=== PATIENT | male | born 1980 | race Caucasian/White ===

== ENCOUNTER 2020-04-10 22:42 | Emergency (ER) | payer BC ==
[2020-04-10] MEDS ORDERED: Octyl 2-Cyanoacrylate 1 Tube ONE (23:57)
[2020-04-11] MEDS ORDERED: Diphtheria,Pertussis(Acell),Tetanus Vaccine 0.5 ML Syringe IM ONE ×2 (00:16→00:40)
[2020-04-11] MEDS ORDERED: Octyl 2-Cyanoacrylate 1 Tube TOP ONE (00:16)
[2020-04-11] MEDS ORDERED: Cephalexin 500 MG Cap PO ONE (00:16)
[2020-04-11] MEDS ORDERED: Octyl 2-Cyanoacrylate 1 APPLIC TUBE ONE (00:19)
--- NOTE | 2020-04-11 00:22 | EDM.PDOC ---
ED HPI GENERAL MEDICAL PROBLEM - General Chief Complaint: Laceration Stated Complaint: LEFT HAND FINGER INJURY Time Seen by Provider: 04/10/20 23:10 - History of Present Illness INITIAL COMMENTS - FREE TEXT/NARRATIVE: HISTORY AND PHYSICAL: History of present illness: This is a 39-year-old gentleman who presents ER today with an avulsion laceration of his left thumb that he incurred while cutting up a deer. Patient reports his tetanus status is not up-to-date in greater than 10 years. Patient reports that he has been having difficult time stopping the bleeding. Patient denies any other symptomatology. Review of systems: As per history of present illness and below otherwise all systems reviewed and negative. Past medical history: As per history of present illness and as reviewed below otherwise noncontributory. Surgical history: As per history of present illness and as reviewed below otherwise noncontributory. Social history: No reported history of drug or alcohol abuse. Family history: As per history of present illness and as reviewed below otherwise noncontributory. Physical exam: Constitutional: Patient is oriented to person, place, and time. Appears well- developed and well-nourished. No distress. HEENT: Moist mucous membranes Head: Normocephalic and atraumatic Eyes: Right eye exhibits no discharge. Left eye exhibits no discharge. No scleral icterus Neck: Normal range of motion. No tracheal deviation present. Cardiovascular: Normal rate and regular rhythm. Pulmonary: Effort normal, no respiratory distress. Abdominal: No distention Musculoskeletal: Normal range of motion Neurologic: Alert and oriented to person, place and time. Skin: Latty, warm and dry. Psychiatric: Normal mood and affect. Behavior is normal. Judgment and thought content normal. Nursing note and vital signs have been reviewed Patient's ER physical exam is significant for a 1 x 2 cm superficial avulsion of the skin of the volar pad of his left thumb with active bleeding despite pressure for greater than 30 minutes. Patient is neurovascular intact. No bone is visible. Diagnostics: None indicated Therapeutics: Tdap 0.5 IM Dermabond application Assessment and plan: This is a 39-year-old gentleman who presents ER today secondary to an avulsion of the skin of his volar pad of his left thumb with inability to stop the bleeding. Wound was irrigated with 100 cc of NSS and alcohol prep. After tourniquet was applied, small amount of Dermabond was placed on the wound with excellent cessation of the bleeding. Tourniquet was removed with no active bleeding at this time. A second layer of Dermabond was applied to assist with ensuring no further bleeding. Patient be discharged home with Keflex 500 3 times daily x7 days. Infection precautions discussed with patient. Reassessment at the time of disposition demonstrates that the patient is in no acute distress. The patient has remained stable throughout the entire ED visit and is without objective evidence for acute process requiring urgent intervention or hospitalization. The patient is stable for discharge, counseling is provided as documented above, discussed symptomatic treatment and specific conditions for return. I have spoken with the patient/caregiver and discussed todays findings, in addition to providing specific details for the plan of care. Questions are answered and there is agreement with the plan. Definitive disposition and diagnosis as appropriate pending reevaluation and review of above. L thumb Pain Score (Numeric/FACES): 4 - Related Data Allergies Allergy/AdvReac Type Severity Reaction Status Date / Time No Known Allergies Allergy Verified 08/08/13 09:10 Home Meds: Home Meds cephALEXin [Keflex] 500 mg PO TID #21 capsule 04/11/20 [Rx] Past Medical History - Past Health History Medical/Surgical History: Denies Medical/Surgical History HEENT History: Reports: None Cardiovascular History: Reports: None Respiratory History: Reports: None Gastrointestinal History: Reports: None Hematologic History: Reports: None - Infectious Disease History Infectious Disease History: Reports: None Social & Family History - Family History Family Medical History: No Pertinent Family History - Tobacco Use Tobacco Use Status *Q: Never Tobacco User - Recreational Drug Use Recreational Drug Use: No ED ROS GENERAL - Review of Systems Review Of Systems: See Below ED EXAM, SKIN/RASH Exam: See Below Course - Vital Signs Last Recorded V/S: Last Vital Signs Temp 97 F 04/10/20 23:05 Pulse 68 04/10/20 23:05 Resp 16 04/10/20 23:05 BP 127/73 04/10/20 23:05 Pulse Ox 98 04/10/20 23:05 - Orders/Labs/Meds Meds: Medications Discontinued Medications Generic Name Dose Route Start Last Admin Trade Name Freq PRN Reason Stop Dose Admin Cephalexin 500 mg 04/11/20 00:16 04/11/20 00:34 Keflex PO 04/11/20 00:17 500 mg ONETIME ONE Administration Diphtheria/Tetanus/Acell Pertussis 0.5 ml 04/11/20 00:16 04/11/20 00:39 Adacel IM 04/11/20 00:17 Not Given .ONCE ONE Diphtheria/Tetanus/Acell Pertussis 0.5 ml 04/11/20 00:40 04/11/20 00:42 Boostrix IM 04/11/20 00:41 0.5 ml .ONCE ONE Administration Octyl Cyanoacrylate Confirm 04/10/20 23:57 04/11/20 00:39 Dermabond Advance Administered 04/10/20 23:58 Not Given Dose 1 applic .ROUTE .STK-MED ONE Octyl Cyanoacrylate 1 applic 04/11/20 00:16 04/11/20 00:39 Dermabond Advance TOP 04/11/20 00:17 1 applic ONETIME ONE Administration Octyl Cyanoacrylate Confirm 04/11/20 00:19 04/11/20 00:40 Dermabond Mini Administered 04/11/20 00:20 Not Given Dose 1 applic .ROUTE .STK-MED ONE Departure - Departure Time of Disposition: 00:20 Disposition: Home, Self-Care 01 Condition: Good Clinical Impression: Laceration of left thumb - Discharge Information Prescriptions: cephALEXin [Keflex] 500 mg PO TID #21 capsule Instructions: Tissue Adhesive Wound Care, Laceration Care, Adult Referrals: Nik Ball MD [Primary Care Provider] - Forms: ED Department Discharge Additional Instructions: You were seen and evaluated in the ER today secondary to a laceration to your thumb. Dermabond was applied to assist with the bleeding and healing. Please do not apply any Neosporin or oil-based ointment to the Dermabond as that will cause it to disintegrate more rapidly. You may wash your hands with mild soap and water and gently pat dry it as needed. You will be given a prescription for Keflex 500 mg to take 3 times a day for 7 days. Please return to the ER if any increased redness swelling drainage or odor arises from the infection. Please make sure you make an appointment see your doctor in 2 to 3 days for wound check. The following information is given to patients seen in the emergency department who are being discharged to home. This information is to outline your options for follow-up care. We provide all patients seen in our emergency department with a follow-up referral. The need for follow-up, as well as the timing and circumstances, are variable depending upon the specifics of your emergency department visit. If you don't have a primary care physician on staff, we will provide you with a referral. We always advise you to contact your personal physician following an emergency department visit to inform them of the circumstance of the visit and for follow-up with them and/or the need for any referrals to a consulting specialist. The emergency department will also refer you to a specialist when appropriate. This referral assures that you have the opportunity for follow-up care with a specialist. All of these measure are taken in an effort to provide you with optimal care, which includes your follow-up. Under all circumstances we always encourage you to contact your private physician who remains a resource for coordinating your care. When calling for follow-up care, please make the office aware that this follow-up is from your recent emergency room visit. If for any reason you are refused follow-up, please contact the [facility] Emergency Department at and asked to speak to the emergency department charge nurse. [facility] [address] [place] [address] [place] [address] Sepsis Event Note (ED) - Evaluation Sepsis Screening Result: No Definite Risk - Focused Exam Vital Signs: Vital Signs Temp Pulse Resp BP Pulse Ox 04/10/20 23:05 97 F 68 16 127/73 98
== END 2020-04-11 01:00 | disposition home or self-care (01) ==
LOC: MW.ED 22:42
DX: S61.012A Laceration without foreign body of left thumb without damage to nail, initial encounter (principal); Z23 Encounter for immunization; W26.9XXA Contact with unspecified sharp object(s), initial encounter
CPT/HCPCS: 12001; 90471; 99282; A9270

== ENCOUNTER 2025-02-08 09:39 | Emergency (ER) | payer BC ==
[2025-02-08] MEDS ORDERED: Sodium Chloride 0.9% 10 ML Syringe FLUSH PRN (10:17)
[2025-02-08] MEDS ORDERED: Sodium Chloride 0.9% 2.5 ML Syringe FLUSH PRN (10:17)
[2025-02-08] MEDS: Ketorolac 30 MG/ML SDV IVPUSH ONE (10:36)
[2025-02-08 10:48] LABS: BASOPHILS ABSOLUTE AUTO 0.05 K/uL (0.00-0.20); BASOPHILS PERCENT AUTO 0.4 % (0.0-1.0); EOSINOPHILS ABSOLUTE AUTO 0.03 K/uL (0.00-0.45); EOSINOPHILS PERCENT AUTO 0.2 % (0.0-6.0); IMMATURE GRAN ABSOLUTE AUTO 0.05 K/uL (0.00-0.05); IMMATURE GRAN PERCENT AUTO 0.4 % (0.0-0.4); LYMPHOCYTES ABSOLUTE AUTO 1.07 K/uL (1.00-4.80); LYMPHOCYTES PERCENT AUTO 7.7 % (24.0-44.0); MEAN PLATELET VOLUME 10.4 fL (9.4-12.4); MONOCYTES ABSOLUTE AUTO 1.10 K/uL (0.00-0.80); MONOCYTES PERCENT AUTO 7.9 % (0.0-8.0); NEUTROPHILS ABSOLUTE AUTO 11.56 K/uL (1.80-7.70); NEUTROPHILS PERCENT AUTO 83.4 % (41.0-71.0); NRBC ABSOLUTE 0.00 K/uL (0.00-0.02); NRBC PERCENT 0.0 /100WBC (0.0-0.2); PLATELET COUNT,PLT 173 K/uL (150-400); RED BLOOD CELL COUNT 5.61 M/uL (4.52-5.90); WHITE BLOOD CELL COUNT,WBC 13.86 K/uL (3.9-11.3)
[2025-02-08 11:12] LABS: A/G RATIO 1.1 (0.9-1.6); ALANINE AMINOTRANSFERASE,ALT 30.0 IU/L (14-63); ASPARTATE AMNIOTRANSFERASE,AST 18.0 IU/L (15-37); BILIRUBIN TOTAL 1.1 mg/dL (0.2-1.0); BLOOD UREA NITROGEN,BUN 13.0 mg/dL (7.0-18.0); CARBON DIOXIDE,CO2 30.0 mmol/L (21.0-32.0); CHLORIDE,CL 102.0 mmol/L (98-107); CREATININE 1.3 mg/dL (0.8-1.3); EST CRCL DRUG DOSING (CG) 71.0 mL/min; GLUCOSE RANDOM 103.0 mg/dL (74-106); POTASSIUM,K 4.3 mmol/L (3.5-5.1); PROTEIN TOTAL,TP 7.1 g/dL (6.4-8.2); SODIUM,NA 139.0 mmol/L (136-148)
[2025-02-08 11:13] LABS: ESTIMATED GFR 69.0 mL/min (>60)
[2025-02-08 11:46] LABS: APPEARANCE,URINE CLEAR; GLUCOSE,URINE NEGATIVE (NEGATIVE); OCCULT BLOOD,URINE NEGATIVE (NEGATIVE)
[2025-02-08] MEDS: Iopamidol 755 MG/ML 500 ML Multipack Bottle IVPUSH STA (11:46)
== END 2025-02-08 12:57 | disposition home or self-care (01) ==
LOC: MW.ED 09:39
DX: K57.32 Diverticulitis of large intestine without perforation or abscess without bleeding (principal); Z75.3 Unavailability and inaccessibility of health-care facilities
CPT/HCPCS: 36415; 74177; 80053; 81003; 83690; 83735; 85025; 96361; 96374; 99284; J1885; J7030; Q9967; 99283